=== PATIENT | male | born 1955 ===

== ENCOUNTER 2018-06-05 18:43 | Inpatient (IN) | payer OTHER | END 2018-06-08 17:10 | disposition home or self-care (01) | DRG 603 | LOC: MEDICAL 18:43 | PROVIDERS: ADMIT Hospitalist | DX: L03.221 Cellulitis of neck (principal); I12.0 Hypertensive chronic kidney disease with stage 5 chronic kidney disease or end stage renal disease; N18.5 Chronic kidney disease, stage 5; E87.2 Acidosis; B95.62 Methicillin resistant Staphylococcus aureus infection as the cause of diseases classified elsewhere; I25.10 Atherosclerotic heart disease of native coronary artery without angina pectoris; Z95.5 Presence of coronary angioplasty implant and graft; E11.22 Type 2 diabetes mellitus with diabetic chronic kidney disease; Z79.4 Long term (current) use of insulin; E78.5 Hyperlipidemia, unspecified; D63.1 Anemia in chronic kidney disease ==

== ENCOUNTER → 2018-06-14 | Outpatient (CLI) | payer SELFPAY ==
[~2018-06-14] MED LIST: ASPIRIN 81M81 MG/TA2 PO; CLEOCIN HCL300 MG PO; HUMULIN 70/3100 U/M1 SQ; IMDUR 30MG30 MG/TAB; IMDUR 30MG30 MG/TAB PO; LIPITOR 10MG10 MG PO; NORCO 325 MG-51 TAB PO; NORVASC 10MG10 MG PO; PLAVIX 75MG TAB75 MG PO; SODIUM BICARBO650 MG PO
== END ==
LOC: ZCOL.LAB 15:45
DX: L02.91 Cutaneous abscess, unspecified (principal)

== ENCOUNTER 2019-01-02 12:30 | Inpatient (IN) | payer OTHER ==
[~2019-01-02] VITALS: Ht 165.1 cm; Wt 75.3 kg
[2019-01-02] VITALS (15 sets, daily range): BP systolic 150–184; BP diastolic 79–102; PULSE 76–113; TEMP 97.7–98.7
[2019-01-02 13:26] LABS: BASO % 0.2 % (0.0-2.0); EOS # 0.4 (0.0-0.7); EOS % 4.1 % (0-4.0); GRAN # 6.9 (1.4-6.5); GRAN % 77.4 % (42.2-75.2); LYMPH # 1.2 (1.2-3.4); LYMPH % 12.9 % (20.0-51.0); MEAN CELL VOLUME 86 fl (80.0-100.0); MEAN CORPUSCULAR HGB CONC 35 g/dl (33.0-37.0); MEAN PLATELET VOLUME 9.6 fl (7.4-10.4); MONO # 0.4 (0.1-0.6); MONO % 4.5 % (1.7-9.3); PLATELET COUNT 96 K/mm3 (130-400); PROTHROMBIN TIME 11.3 SECONDS (9.7-12.8); RED BLOOD COUNT 2.11 M/mm3 (4.20-5.60); REDCELL DISTRIBUTION WIDTH-CV 13.3 % (11.5-14.5)
[2019-01-02 13:27] LABS: HEMATOCRIT 18.2 % (42.0-52.0); HEMOGLOBIN 6.4 g/dl (13.5-18.0); MEAN CORPUSCULAR HEMOGLOBIN 30 pg (27.0-31.0)
[2019-01-02 13:29] LABS: PARTIAL THROMBOPLASTIN TIME 27.5 SECONDS (26.0-37.0)
[2019-01-02 13:30] LABS: ALANINE AMINOTRANSFERASE < 6 U/L (21-72); ALBUMIN 3.7 gm/dL (3.5-5.0); ALKALINE PHOSPHATASE 73 U/L (50-136); ANION GAP 18 mmol/L (7-16); AST,SGOT 18 U/L (15-37); BILIRUBIN,TOTAL 0.4 mg/dL (0.0-1.0); BLOOD UREA NITROGEN 117 mg/dL (9-20); CARBON DIOXIDE 18 mmol/L (22-30); CHLORIDE 100 mmol/L (98-107); GLUCOSE 203 mg/dL (74-106); MAGNESIUM 2.1 mg/dL (1.6-2.3); POTASSIUM 4.5 mmol/L (3.4-5.0); SODIUM 135 mmol/L (137-145)
[2019-01-02 13:32] LABS: CALCIUM 5.6 mg/dL (8.4-10.2)
[2019-01-02 13:36] LABS: CREATININE, serum 19.25 (0.66-1.25)
--- NOTE | 2019-01-02 16:12 | NUR ---
ALL MEDICATIONS GIVEN VORB WITH MD. SEE MERGE FOR ALL MEDICATION ADMIN TIMES. SEE MERGE FOR ALL RASS ASSESSMENTS DURING AND POST PROCEDURE.
--- NOTE | 2019-01-02 17:15 | NUR ---
Patient transported to Surgical room 341 at this time. Patient is alert and oriented. Denies any pain at this time. VS stable. Primary RN notified about patient here and awaiting bedside report to be given. Site is clean, dry, and intact. No oozing or hematoma noted. Call light within reach, bed in locked and lowest position.
--- NOTE | 2019-01-02 17:26 | NUR ---
Bedside report given to surgical floor RN at this time. Visualized R IJ Tunneled Dialysis Catheter site. Dressing is clean, dry, and intact, no oozing or hematoma noted atthis time. Patient denies any pain at this time. VS stable. Bed in locked and lowest position. Call light within reach.
[2019-01-02 17:45] LABS: COLLECTION METHOD CLEAN CATCH
[2019-01-02 17:56] LABS: PH 6 (5-8); SQUAMOUS EPITHELIAL 0-2 /hpf; URINE APPEARANCE Clear; URINE BACTERIA Rare /hpf; URINE BILIRUBIN Negative (NEGATIVE); URINE BLOOD 1+ (NEGATIVE); URINE COLOR Straw; URINE GLUCOSE 3+ (NEGATIVE); URINE KETONE Negative (NEGATIVE); URINE LEUKOCYTE ESTERASE Negative (NEGATIVE); URINE NITRATE Negative (NEGATIVE); URINE PROTEIN(semi-quant) 3+ (NEGATIVE); URINE UROBILINOGEN Negative (NEGATIVE)
--- NOTE | 2019-01-02 18:54 | NUR ---
Patient lying in bed with eyes open. Has ordered a dinner tray, awaiting for it to arrive. Denies pain. Daughter in room and patient is talking with daughter. Dressing to right upper chest clean, dry, and intact. Patient denies further needs at this time.
--- NOTE | 2019-01-02 21:30 | NUR ---
Post op vitals complete. HS meds all reviewed and given along with arenesp SQ. Patient reports some soreness RUC catheter site but denies need for pain med. Understands most of what nurse communicates except for medication and indication for use.
--- NOTE | 2019-01-03 00:10 | NUR ---
Patient visits on phone. 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 Apresoline given for SBP >160 and reviewed. Patient placed in contact guard isolation for Hx MRSA wound and no noted recheck. LUE restricted extremity band placed, 1500 ml fluid restriction noted. Patient up to the sink and bathroom with observation earlier and did HS cares and voided in toilet. Gait steady. Rests in bed and denies need for pain med. Right tunneled dialysis catheter dressing with quarter size red drainage shadowing but unchanged from earler.
[2019-01-03 02:59] VITALS: BP 151/76; PULSE 92; TEMP 98.1
--- NOTE | 2019-01-03 05:52 | NUR ---
Patient sat up and felt dizzy. Checking Bp and accu check. BP 143/66, HR 92 sao2 98%. Patient has been resting with eyes closed until awakened by nurse. Accu check 143.
--- NOTE | 2019-01-03 05:59 | NUR ---
teaching done on monitoring I&O and fluid restriction of 1500mls. Will need reinforcement.
--- NOTE | 2019-01-03 06:03 | NUR ---
Snack of turkey sandwich and applesauce given/patient hungry and too early to call in for breakfast.
--- NOTE | 2019-01-03 08:30 | NUR ---
Patient is down at dialysis. Family is aware patient was going down. No complaints of pain this morning. No other changes at this time. Chart off the floor with patient.
[2019-01-03 09:10] LABS: BASO % 0.3 % (0.0-2.0); EOS # 0.5 (0.0-0.7); EOS % 6.1 % (0-4.0); GRAN # 5.3 (1.4-6.5); GRAN % 69.1 % (42.2-75.2); LYMPH # 1.3 (1.2-3.4); LYMPH % 17.3 % (20.0-51.0); MEAN CELL VOLUME 87 fl (80.0-100.0); MEAN CORPUSCULAR HGB CONC 35 g/dl (33.0-37.0); MEAN PLATELET VOLUME 9.2 fl (7.4-10.4); MONO # 0.5 (0.1-0.6); MONO % 6.6 % (1.7-9.3); PLATELET COUNT 77 K/mm3 (130-400); RED BLOOD COUNT 1.93 M/mm3 (4.20-5.60); REDCELL DISTRIBUTION WIDTH-CV 13.6 % (11.5-14.5)
[2019-01-03 09:13] LABS: MEAN CORPUSCULAR HEMOGLOBIN 31 pg (27.0-31.0)
[2019-01-03 09:14] LABS: HEMOGLOBIN 5.9 g/dl (13.5-18.0)
[2019-01-03 09:15] LABS: HEMATOCRIT 16.8 % (42.0-52.0)
[2019-01-03 09:21] LABS: ALBUMIN 3.4 gm/dL (3.5-5.0); CALCIUM 6.3 mg/dL (8.4-10.2); POTASSIUM 3.9 mmol/L (3.4-5.0)
--- NOTE | 2019-01-03 09:28 | NUR ---
Aplisol (tuberculin purified protein derivative) 0.1ml intradermal left forearm w/wheal formation. Lot [id number] Muna. 01/04. pt denies treatment or known exposure to tb in self or immediate family. pt denies receipt of BCG in past.
[2019-01-03 09:42] LABS: CREATININE, serum 15.59 (0.66-1.25)
[2019-01-03 11:08] VITALS: BP 157/74; PULSE 85; TEMP 98
--- NOTE | 2019-01-03 14:47 | NUR ---
SW attempted to meet with patient to discuss discharge planning. Patient requested SW return tomorrow when his daughter is visiting. SW also provided her phone number if patient's daughter would like to call. Patient was seen by Jossie, financial counselor, to complete a medicaid application financial assisstance application. Jossie reports patient has been non compliant with providing the required documentation for the medicaid application in the past.
[2019-01-03 15:35] LABS: HEPATITIS B SURFACE ANTIBODY 752.1 (()); HEPATITIS B SURFACE ANTIGEN Negative (Negative); HEPATITIS C VIRUS ANTIBODY Negative (Negative)
[2019-01-03 16:53] VITALS: BP 160/80; PULSE 87; TEMP 98.3
--- NOTE | 2019-01-03 17:30 | NUR ---
Patient is being transferred to medical unit. He has been doing well today. No complaints of pain this afternoon. He had some nausea and was feeling dizzy after dialysis. He stated he is feeling better now but just tired. His glucose was 73, he is eating peaches at this time. He did not eat much of his lunch because he is not feeling well. Report given to Khurram Pham RN. No other changes at this time.
--- NOTE | 2019-01-03 18:46 | NUR ---
Pt transferred from surgical this afternoon, settled in room, family with Pt.
[2019-01-03 19:48] LABS: MEAN CELL VOLUME 88 fl (80.0-100.0); MEAN CORPUSCULAR HGB CONC 35 g/dl (33.0-37.0); PLATELET COUNT 96 K/mm3 (130-400); RED BLOOD COUNT 2.04 M/mm3 (4.20-5.60); REDCELL DISTRIBUTION WIDTH-CV 13.6 % (11.5-14.5); RETIC # 0.07 M/mm3 (0.02-0.16); RETIC % 3.5 % (0.5-3.52)
[2019-01-03 19:53] LABS: HEMOGLOBIN 6.3 g/dl (13.5-18.0); MEAN CORPUSCULAR HEMOGLOBIN 31 pg (27.0-31.0)
[2019-01-03 19:54] LABS: HEMATOCRIT 17.9 % (42.0-52.0)
[2019-01-03 20:01] VITALS: BP 172/80; PULSE 91; TEMP 98.3
[2019-01-03 20:48] LABS: BAND 1 % (0-10); EOSINOPHIL 2 % (0-4); LYMPHOCYTE 9 % (20.0-51.0); MYELOCYTE 1 % (0-0); NEUTROPHILS 86 % (42.0-75.2); PLATELET ESTIMATE DECREASED (NORMAL)
[2019-01-03 20:49] LABS: ROULEAUX 1+
[2019-01-03 20:51] LABS: ANISOCYTOSIS 2+; HYPOCHROMIA 2+; MICROCYTOSIS 2+; POIKILOCYTOSIS 1+
[2019-01-03 22:13] LABS: HEPATITIS B CORE AB,TOTAL Positive (())
[2019-01-03 23:48] VITALS: BP 153/79; PULSE 93; TEMP 98
[2019-01-04] VITALS (7 sets, daily range): BP systolic 154–196; BP diastolic 78–102; PULSE 78–101; TEMP 97.6–99
[2019-01-04 06:19] LABS: MEAN CELL VOLUME 88 fl (80.0-100.0); MEAN CORPUSCULAR HGB CONC 35 g/dl (33.0-37.0); PLATELET COUNT 103 K/mm3 (130-400); RED BLOOD COUNT 1.99 M/mm3 (4.20-5.60); REDCELL DISTRIBUTION WIDTH-CV 13.8 % (11.5-14.5)
[2019-01-04 06:24] LABS: ALBUMIN 3.4 gm/dL (3.5-5.0); CALCIUM 7.8 mg/dL (8.4-10.2); PHOSPHOROUS 8.4 mg/dL (2.5-4.5); POTASSIUM 4.1 mmol/L (3.4-5.0)
[2019-01-04 06:25] LABS: CREATININE, serum 13.41 (0.66-1.25)
[2019-01-04 06:34] LABS: HEMATOCRIT 17.5 % (42.0-52.0); HEMOGLOBIN 6.1 g/dl (13.5-18.0); MEAN CORPUSCULAR HEMOGLOBIN 31 pg (27.0-31.0)
--- NOTE | 2019-01-04 07:00 | NUR ---
PT HAS A STUDENT NURSE ASSIGNED TO ASSIST IN CARE.
--- NOTE | 2019-01-04 08:50 | NUR ---
PT TAKEN DOWN FOR DIALYSIS. PT ORDERED 1 UNIT PRBC. AWAITING TYPE AND SCREEN. CALLED LAB TO CHECK IF TYPE AND SCREEN HAD BEEN DRAWN. LAB ORDER WAS NOT TIMED SO TYPE AND SCREEN HAD NOT BEEN DONE YET. LAB GOING TO DIALYSIS TO OBTAIN TYPE AND SCREEN. ROGERIO, DIALYSIS NURSE, MADE AWARE. WILL GO GET PRBC ONCE BLOOD IS READY.
[2019-01-04 09:29] LABS: EOSINOPHIL 2 % (0-4); LYMPHOCYTE 14 % (20.0-51.0); NEUTROPHILS 78 % (42.0-75.2)
[2019-01-04 09:30] LABS: HYPOCHROMIA 2+
[2019-01-04 09:31] LABS: PLATELET ESTIMATE DECREASED (NORMAL)
--- NOTE | 2019-01-04 10:15 | NUR ---
Reported on to primary nurse Jessica RN, Maria L Dominguez, RN Student
--- NOTE | 2019-01-04 10:20 | NUR ---
PT STILL IN DIALYSIS. PRBC NOT READY AT THIS TIME. WILL OBTAIN BLOOD FOR DIALYSIS NURSE WHEN READY.
--- NOTE | 2019-01-04 10:39 | NUR ---
ANTIBODY SCREEN FOR TYPE AND SCREEN JUST RETURNED. AWAITING FOR UNIT TO BE READY FROM BLOOD BANK. ROGERIO, DIALYSIS NURSE, UPDATED.
--- NOTE | 2019-01-04 10:45 | NUR ---
PT STILL IN DIALYSIS
--- NOTE | 2019-01-04 11:05 | NUR ---
OBTAINED PRBC FROM BLOOD BANK. VERIFIED PATIENT AND UNIT WITH DIALYSIS NURSE.
--- NOTE | 2019-01-04 11:45 | NUR ---
PT STILL IN DIALYSIS
--- NOTE | 2019-01-04 11:59 | NUR ---
PT RETURNED VIA WHEELCHAIR BY KARY POSADAS, TO ROOM 310.
--- NOTE | 2019-01-04 13:48 | NUR ---
Primary nurse was assisted with [id number] patient care by [facility] student Maria L Dominguez and [employer] [facility] [employer] instructor Miryam Chirinos RN-.
--- NOTE | 2019-01-04 13:54 | NUR ---
Patient resting in bed with a vistor. Reported off to nurse BRITTNEE Lopez. Maria L Dominguez RN student
--- NOTE | 2019-01-04 14:06 | NUR ---
NISA met with the patient and patient's daughter, Shira Andres (#[phone]) to discuss discharge plan. The patient was able to answer some questions and his daughter also translated some for the patient. The patient lives on [address] with his diugher and her two kids. Shira reports that her is deployed in [place] right now. The patient reports independence with ADLs and does not have any DME. The patient receives primary care at the [facility] in [place] and he also receives his medications there. His daughter reports no difficulties obtaining his meds. The patient is self pay. Financial Counselor, Jossie, was consulted and completed a new Medicaid shakila with the patient. The patient does not have advanced directives and he was not interested in completing them at this time. The patient plans to return back home with his daughter upon discharge. No other identified needs at this time.
[2019-01-04 16:47] LABS: HAPTOGLOBIN 147 mg/dL (36-195)
[2019-01-05 00:40] VITALS: BP 174/81; PULSE 93; TEMP 98.6
[2019-01-05 04:14] VITALS: BP 161/69; PULSE 96
[2019-01-05 06:59] LABS: MEAN CELL VOLUME 88 fl (80.0-100.0); MEAN CORPUSCULAR HGB CONC 35 g/dl (33.0-37.0); MEAN PLATELET VOLUME 9.9 fl (7.4-10.4); PLATELET COUNT 98 K/mm3 (130-400); RED BLOOD COUNT 2.36 M/mm3 (4.20-5.60)
[2019-01-05 07:09] LABS: ALBUMIN 3.2 gm/dL (3.5-5.0); CALCIUM 8.1 mg/dL (8.4-10.2); PHOSPHOROUS 5.7 mg/dL (2.5-4.5); POTASSIUM 4.1 mmol/L (3.4-5.0)
[2019-01-05 07:10] LABS: CREATININE, serum 9.46 (0.66-1.25)
[2019-01-05 07:40] LABS: HEMATOCRIT 20.8 % (42.0-52.0); HEMOGLOBIN 7.2 g/dl (13.5-18.0); MEAN CORPUSCULAR HEMOGLOBIN 31 pg (27.0-31.0)
[2019-01-05 08:03] VITALS: BP 136/60; PULSE 94; TEMP 98.2
[2019-01-05 10:09] LABS: EOSINOPHIL 6 % (0-4); LYMPHOCYTE 17 % (20.0-51.0); NEUTROPHILS 69 % (42.0-75.2); NUCLEATED RED BLOOD CELL 2 (0-6); PLATELET ESTIMATE DECREASED (NORMAL)
[2019-01-05 12:57] VITALS: BP 136/76; PULSE 90; TEMP 98.6
--- NOTE | 2019-01-05 13:25 | NUR ---
I have given report to BRITTNEE Hwang whom is taking over the patients' care at this time
[2019-01-05 16:44] VITALS: BP 154/70; PULSE 81; TEMP 98.1
--- NOTE | 2019-01-05 17:28 | NUR ---
Resumed cares for pt from BRITTNEE Emerson. Pt back from dialysis and slept most of afternoon. Pt awake at this time. VSS. Blood sugar 203. Pt refused insulin at this time. Pt eating lunch. Will recheck blood sugar later. No other concerns voiced by patient.
[2019-01-05 20:28] VITALS: BP 145/76; PULSE 95; TEMP 99.2
--- NOTE | 2019-01-05 21:30 | NUR ---
Report received from BRITTNEE Hwang. Patient resting in bed. Family at bedside. Denies any pain at this time. Assessment complete. Lungs CTA. Pulses strong. Alert and oriented. IV patent. Right upper chest dialysis catheter CDI. Denies any further needs at this time. Call light within reach.
[2019-01-06 00:20] VITALS: BP 145/69; PULSE 96; TEMP 98.2
[2019-01-06 05:06] VITALS: BP 156/73; PULSE 85; TEMP 98.8
--- NOTE | 2019-01-06 05:33 | NUR ---
Patient had uneventful night. Resting in bed. Family at bedside. Denied pain throughout shift. Blood sugars fluctuated but have lowered and most recent, 128. No further needs at this time. Call light within reach.
[2019-01-06 06:52] VITALS: BP 165/79; PULSE 86; TEMP 98.5
--- NOTE | 2019-01-06 06:53 | NUR ---
Report given to BRITTNEE Gonzalez
[2019-01-06 07:07] LABS: MEAN CELL VOLUME 90 fl (80.0-100.0); MEAN CORPUSCULAR HGB CONC 34 g/dl (33.0-37.0); MEAN PLATELET VOLUME 9.9 fl (7.4-10.4); PLATELET COUNT 114 K/mm3 (130-400); RED BLOOD COUNT 2.42 M/mm3 (4.20-5.60); REDCELL DISTRIBUTION WIDTH-CV 13.7 % (11.5-14.5)
[2019-01-06 07:09] LABS: HEMATOCRIT 21.7 % (42.0-52.0); HEMOGLOBIN 7.4 g/dl (13.5-18.0); MEAN CORPUSCULAR HEMOGLOBIN 31 pg (27.0-31.0)
[2019-01-06 07:17] LABS: ALBUMIN 3.2 gm/dL (3.5-5.0); PHOSPHOROUS 5.1 mg/dL (2.5-4.5); POTASSIUM 4.2 mmol/L (3.4-5.0)
[2019-01-06 07:19] LABS: CREATININE, serum 6.72 (0.66-1.25)
--- NOTE | 2019-01-06 09:30 | NUR ---
PATIENT ASSESSMENT COMPLETED. HE IS EASILY ARROUSED FROM SLEEPING. FAMILY AT BEDSIDE. HE DENIES ANY QUESTIONS. HE DOES REFUSE TO TAKE HIS 70/30 INSULIN THIS MORNING BECAUSE HIS BLOOD SUGAR WAS 115, HE REPORTS AT HOME THAT HE DOESN'T TAKE ANY INSULIN IF HIS BLOOD SUGAR IS AT LEAST 150, IF HE DOES HE GOES DOWN FAST.
--- NOTE | 2019-01-06 11:13 | NUR ---
TB skin test in left forearm, nickel size erythema noted around puncture site, no induration noted.
[2019-01-06 11:16] LABS: BAND 1 % (0-10); EOSINOPHIL 1 % (0-4); HYPOCHROMIA 1+; LYMPHOCYTE 18 % (20.0-51.0); MYELOCYTE 1 % (0-0); NEUTROPHILS 70 % (42.0-75.2); PLATELET ESTIMATE NORMAL (NORMAL)
[2019-01-06 11:41] VITALS: BP 137/71; PULSE 93; TEMP 98.8
[2019-01-06 16:52] VITALS: BP 173/76; PULSE 92; TEMP 99.1
[2019-01-06 21:49] VITALS: BP 175/82; PULSE 90; TEMP 99.2
[2019-01-07] VITALS (7 sets, daily range): BP systolic 155–182; BP diastolic 76–92; PULSE 81–95; TEMP 97.6–98.4
[2019-01-07 05:44] LABS: MEAN CELL VOLUME 90 fl (80.0-100.0); MEAN CORPUSCULAR HGB CONC 34 g/dl (33.0-37.0); MEAN PLATELET VOLUME 9.4 fl (7.4-10.4); PLATELET COUNT 118 K/mm3 (130-400); RED BLOOD COUNT 2.47 M/mm3 (4.20-5.60); REDCELL DISTRIBUTION WIDTH-CV 13.9 % (11.5-14.5)
[2019-01-07 05:48] LABS: HEMATOCRIT 22.1 % (42.0-52.0); HEMOGLOBIN 7.4 g/dl (13.5-18.0); MEAN CORPUSCULAR HEMOGLOBIN 30 pg (27.0-31.0)
[2019-01-07 05:56] LABS: ALBUMIN 3.2 gm/dL (3.5-5.0); CALCIUM 9.9 mg/dL (8.4-10.2); CREATININE, serum 9.26 (0.66-1.25); PHOSPHOROUS 6.8 mg/dL (2.5-4.5)
[2019-01-07 06:00] LABS: EOSINOPHIL 7 % (0-4); LYMPHOCYTE 18 % (20.0-51.0); NEUTROPHILS 65 % (42.0-75.2); PLATELET ESTIMATE DECREASED (NORMAL)
--- NOTE | 2019-01-07 08:00 | NUR ---
Assessment completed, alert/oriented, vital signs stable, denies pain or discomfort, heart RRR/ distal pulses are palpable, lungs CTA/ no resp.difficulty noted, blood sugars controlled/ patient refused any 70/30 insulin this morning, family present in the room/ they are waiting to discuss plan of care and discharge planning with whom has not been by to make rounds yet, they deny other needs from nursing at this time
[2019-01-07 09:32] LABS: KAPPA FREE LIGHT CHAIN-SERUM 436.42 mg/L (()); KAPPA LAMBDA RATIO 2.36 ratio (()); LAMDA FREE LIGHT CHAIN SERUM 184.66 mg/L (())
--- NOTE | 2019-01-07 15:08 | NUR ---
SW met with the patient to review discharge plan and to check in after the weekend. The patient reports that he is doing good. He states that he is suppose to have dialysis tomorrow and then the doctor will have more information for him. The patient still plans to return back home with his daughter upon discharge. He had no other questions or concerns at this time. SW to continue to follow.
--- NOTE | 2019-01-07 22:00 | NUR ---
Report recieved from BRITTNEE Emerson. Patient resting in bed. Denies having any pain at this time. Assessment complete. Blood pressure elevated. PRN hydralazine given. Patient refuses to take novolog but will take novolin. Pulses strong. Lungs CTA. Denies any further needs at this time. Call light within reach.
[2019-01-08 03:51] VITALS: BP 157/80; PULSE 88; TEMP 99
--- NOTE | 2019-01-08 05:32 | NUR ---
Patient had uneventful night. PRN hydralazine given. Patient denied pain during shift. No further needs at this time. Call light within reach.
--- NOTE | 2019-01-08 06:50 | NUR ---
Report given to BRITTNEE Pickett
[2019-01-08 07:20] VITALS: BP 157/74; PULSE 93; TEMP 98.9
[2019-01-08 12:17] VITALS: BP 133/71; PULSE 88; TEMP 97.8
[2019-01-08 15:50] VITALS: BP 135/74; PULSE 92; TEMP 98.7
--- NOTE | 2019-01-08 16:40 | NUR ---
PT DISCHARGE EDUCATION COMPLETED. IV REMOVED, HAD SOME BLEEDING WHERE IV SITE WAS, WRAPPED WITH COBAN. NO QUESTIONS VOICED.
[2019-01-08] MEDS ORDERED: TUMS500 MG PO (17:24)
== END 2019-01-08 18:40 | disposition home or self-care (01) | DRG 674 ==
LOC: COL.ER 12:30 → SURG 14:25 → MEDICAL 14:25 → COL.ER 15:50 → MEDICAL 01-03 16:24
PROVIDERS: Emergency Medicine; Internal Medicine; ADMIT Internal Medicine Nephrology
PROC: 0JH60XZ Insertion of Tunneled Vascular Access Device into Chest Subcutaneous Tissue and Fascia, Open Approach (ICD-10-PCS; principal; 2019-01-02)
PROC: 02H633Z Insertion of Infusion Device into Right Atrium, Percutaneous Approach (ICD-10-PCS; 2019-01-02)
PROC: 5A1D70Z Performance of Urinary Filtration, Intermittent, Less than 6 Hours Per Day (ICD-10-PCS; 2019-01-03)
DX: N17.9 Acute kidney failure, unspecified (principal); I12.0 Hypertensive chronic kidney disease with stage 5 chronic kidney disease or end stage renal disease; N18.5 Chronic kidney disease, stage 5; E11.22 Type 2 diabetes mellitus with diabetic chronic kidney disease; D69.6 Thrombocytopenia, unspecified; D63.1 Anemia in chronic kidney disease; I16.0 Hypertensive urgency; E83.39 Other disorders of phosphorus metabolism; E83.51 Hypocalcemia; E78.5 Hyperlipidemia, unspecified; Z79.82 Long term (current) use of aspirin; Z79.4 Long term (current) use of insulin; Z79.02 Long term (current) use of antithrombotics/antiplatelets
CPT/HCPCS: J0690; J0881; J1644; J1815; J2250; J3010; J7030; P9016